=== PATIENT | male | born 1995 | race Hispanic/Latino ===

== ENCOUNTER 2022-08-27 18:53 | Emergency (ER) | payer SELFPAY ==
[~2022-08-27] VITALS: Ht 160 cm; Wt 81.6 kg
[2022-08-27 20:04] VITALS: O2SAT 100
== END 2022-08-27 21:07 | disposition home or self-care (01) ==
LOC: ER 19:23
DX: M25.562 Pain in left knee (principal); M25.462 Effusion, left knee; Q74.1 Congenital malformation of knee
CPT/HCPCS: 99283